=== PATIENT | male | born 1985 | race African-American/Black ===

== ENCOUNTER 2020-11-09 01:24 | Emergency (ER) | payer OTHER, BC | END 2020-11-09 02:45 | disposition home or self-care (01) | LOC: ERS 01:24 | DX: S80.812A Abrasion, left lower leg, initial encounter (principal); F17.210 Nicotine dependence, cigarettes, uncomplicated; V47.5XXA Car driver injured in collision with fixed or stationary object in traffic accident, initial encounter | CPT/HCPCS: 99284 ==